=== PATIENT | female | born 1970 | race Caucasian/White ===

== ENCOUNTER 2020-11-23 19:22 | Emergency (ER) | payer BC, SELFPAY ==
[2020-11-23 19:30] VITALS: BP 137/98; PULSE 73; RESP 18; TEMP 36.8; O2SAT 100
--- NOTE | 2020-11-23 19:30 | ED.BACK ---
HPI - Back Pain/Injury General Chief Complaint: Back Pain/Injury Stated Complaint: BACK PAIN Source: patient and RN notes reviewed Limitations: no limitations History of Present Illness HPI Narrative: The overweight patient, on a few meds inc for AODM, presents with low back pain. 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 About 2 weeks ago she was doing yard work and developed low back pain, moderate worse with activity better at rest or with therapy exercises . No fever, bowel?bladder symptoms, hematuria/frequency/urgency/dysuria, numbness/weakness, radiating pain. She has seen orthopedics in the past [inc for bilateral knee interventions], advised to follow-up with them Related Data Home Medications Medication Instructions Recorded Confirmed metformin mg PO 11/23/20 montelukast mg 11/23/20 pantoprazole PO 11/23/20 semaglutide [Ozempic] mg SUBCUT 11/23/20 Allergies Allergy/AdvReac Type Severity Reaction Status Date / Time acetaminophen Allergy Unknown HIVES Verified 07/15/18 15:48 minocycline Allergy Unknown THROAT Verified 07/15/18 15:48 SWELLING oxycodone Allergy Unknown HIVES Verified 07/15/18 15:48 Review of Systems Review of Systems: Narrative: The patient has been informed that they may have pre-hypertension or Hypertension based on a BP reading in the department. I recommend that the patient call the primary care provider listed on their discharge instructions or a physician of their choice this week to arrange follow up for further evaluation of possible pre-hypertension or Hypertension General/Constitutional: No weight loss,fever Eyes: N0: Redness,discharge Ears/Nose/Throat: No: Epistaxis,ear discharge Respiratory: Denies: Hemoptysis Gastrointestinal: No Vomiting, Bleeding-rectal Skin: No Lumps, eruption Neurologic: No Focal Weakness,Sz Hematologic: Denies: Petechiae/Purpura Psychiatric: No: Suicida ideationl All Other Systems: Reviewed and Negative PMFSH Comments At time of signature, agree with nursing past medical, surgical, social and family history. There is no relevant family history pertinent to the presenting complaint Exam Narrative: Exam Narrative: General Appearance: overweight/ Well nourished EYE: PERRLA, Conjunctiva clear Ears: External ear normal Nose: Normal nose Mouth/Throat: Normal appearing, Normal lips, Supple Respiratory: Airway patent Abdomen: Soft Musculoskeletal: Normal strength (no footdrop, 5/5 : EH L-FHL, gastroc-AT, no saddle weakness) Spine/Back: Paraspinal muscle tender (with mild decreased range of motion; left posterior superior iliac crest) Skin: Normal color, no sciatic tenderness Neurological: A&O x3, CN II-XII intact, Normal reflexes (symmetric, 2+ KJ, trace AJ) Psychiatric: Normal mood Course Vital Signs Vital signs: Vital Signs Temperature 98.2 F 11/23/20 19:30 Pulse Rate 73 11/23/20 19:30 Respiratory Rate 18 11/23/20 19:30 Blood Pressure 137/98 H 11/23/20 19:30 Pulse Oximetry 100 11/23/20 19:30 Temperature 98.2 F 11/23/20 19:30 Pulse Rate 73 11/23/20 19:30 Respiratory Rate 18 11/23/20 19:30 Blood Pressure 137/98 H 11/23/20 19:30 Pulse Oximetry 100 11/23/20 19:30 Discharge Plan Discharge Clinical Impression: Facet arthropathy of spine Patient Disposition: Home, Self-Care Condition: Stable Prescriptions: New prednisone 20 mg tablet 60 mg PO DAILY Qty: 9 RF: 0 tramadol 50 mg tablet 50 - 75 mg PO TID PRN (Reason: pain) Qty: 20 RF: 0 acetaminophen-codeine 300-30 mg tablet 1 - 1.5 tablet PO HS PRN (Reason: pain) Qty: 14 RF: 0 No Action pantoprazole 40 mg tablet,delayed release (DR/EC) PO RF: 0 montelukast 10 mg tablet RF: 0 metformin 500 mg tablet extended release 24 hr PO RF: 0 Ozempic 1 mg/dose (4 mg/3 mL) pen injector SUBCUT R
== END 2020-11-23 19:53 | disposition home or self-care (01) ==
PROVIDERS: Emergency Provider Emergency Medicine; PCP Internal Medicine
DX: M47.896 Other spondylosis, lumbar region (principal); J45.909 Unspecified asthma, uncomplicated; K21.9 Gastro-esophageal reflux disease without esophagitis; E11.9 Type 2 diabetes mellitus without complications
CPT/HCPCS: 99213; G0463

== ENCOUNTER 2021-03-22 19:25 | Emergency (ER) | payer BC, SELFPAY ==
[2021-03-22 19:32] VITALS: BP 149/82; PULSE 73; RESP 16; TEMP 37; O2SAT 99
--- NOTE | 2021-03-22 19:45 | ED.URI ---
HPI - URI/Sore Throat General Chief Complaint: Upper Respiratory Infection Stated Complaint: SORE THROAT Time Seen by Provider: 03/22/21 19:31 Source: patient and RN notes reviewed Mode of arrival: ambulatory Limitations: no limitations History of Present Illness HPI Narrative: Patient presents today complaining of a 2-day history of sore throat, rhinorrhea, sneezing. Denies cough, fever, shortness of breath or difficulty swallowing. She currently rates her pain 5/10 and took 1 dose of NyQuil last night to help her sleep, which did provide some relief. MD elicited complaint: sore throat Related Data Home Medications Medication Instructions Recorded Confirmed metformin mg PO 11/23/20 montelukast mg 11/23/20 pantoprazole PO 11/23/20 semaglutide [Ozempic] mg SUBCUT 11/23/20 Allergies Allergy/AdvReac Type Severity Reaction Status Date / Time acetaminophen Allergy Unknown HIVES Verified 07/15/18 15:48 minocycline Allergy Unknown THROAT Verified 07/15/18 15:48 SWELLING oxycodone Allergy Unknown HIVES Verified 07/15/18 15:48 Review of Systems Review of Systems: CONSTITUTIONAL: Denies body aches, fever, chills, or sweats. EYES: Denies visual changes, redness, or discharge. ENT: Denies congestion, or otalgia.+ Sore throat, rhinorrhea, sneezing CARDIOVASCULAR: Denies chest pain, palpitations, or edema. RESPIRATORY: Denies cough or dyspnea. GASTROINTESTINAL: Denies abdominal pain, nausea, vomiting, or diarrhea. GENITOURINARY: Denies dysuria or hematuria. SKIN: Denies rash, itching, or wounds. MUSCULOSKELETAL: Denies back pain, joint pain, or myalgia. NEUROLOGIC: Denies headache, numbness, tingling, or weakness. PSYCH: Denies depression or anxiety. [facility] Past Medical History Medical History (Updated 03/22/21 @ 19:48 by May Bridges, [facility], ) Diabetes GERD (gastroesophageal reflux disease) Comments At time of signature, I have reviewed and agree with nursing past medical, surgical, social and family history unless otherwise noted. Please see nursing chart for further information. There is no relevant family history pertinent to the presenting complaint Exam Narrative: GENERAL: Well-appearing, well-nourished, and in no acute distress. HEAD: Normocephalic, atraumatic. EYES: EOMI. No redness or drainage. Conjunctivae normal. ENT: Mucous membranes pink and moist. Nares clear. No rhinorrhea. TMs normal bilaterally. Throat mildly erythematous without edema or exudate. Uvula midline. NECK: Normal AROM. Supple. Left anterior chain lymphadenopathy. CHEST: No respiratory distress. Clear to auscultation. HEART: Regular rate and rhythm. No murmur appreciated. Normal peripheral pulses. EXTREMITIES: Normal range of motion. No edema. SKIN: Warm, dry, no rash. Capillary refill normal. Normal skin turgor. NEURO: No focal deficits. Alert and oriented x3. Gait steady. PSYCH: Normal affect. No signs of depression or anxiety. Course Vital Signs Vital signs: Vital Signs Temperature 98.6 F 03/22/21 19:32 Pulse Rate 73 03/22/21 19:32 Respiratory Rate 16 03/22/21 19:32 Blood Pressure 149/82 H 03/22/21 19:32 Pulse Oximetry 99 03/22/21 19:32 Temperature 98.6 F 03/22/21 19:32 Pulse Rate 73 03/22/21 19:32 Respiratory Rate 16 03/22/21 19:32 Blood Pressure 149/82 H 03/22/21 19:32 Pulse Oximetry 99 03/22/21 19:32 Reviewed. Pt has been instructed to follow up with her PCP regarding her elevated blood pressure today. MDM - URI/Sore Throat Differential Diagnosis Differential diagnosis: Likely upper respiratory infection, viral infection, pharyngitis and other (Strep throat) Lab Data Attestation: I reviewed the patient's lab results. Labs: Strep Screen Presumptive Negative *(Reference Range: Negative)* Critical Care Time Critical Care Time Critical Care Time: No Discharge Plan Discharge Clinical Impression: Phary
== END 2021-03-22 19:48 | disposition home or self-care (01) ==
PROVIDERS: Emergency Provider Nurse Practitioner; PCP Internal Medicine
DX: J02.9 Acute pharyngitis, unspecified (principal); K21.9 Gastro-esophageal reflux disease without esophagitis
CPT/HCPCS: 87081; 87880; 99213; G0463